=== PATIENT | female | born 1950 | race Caucasian/White ===

== ENCOUNTER → 2016-09-13 | Outpatient (CLI) | payer MEDICARE, OTHER ==
[~2016-09-13] MED LIST: ADVIL200 MG PO; AMBIEN 10MG10 MG PO; ASPIRIN E.C. 8181 MG PO; B-12 100 MCG PO; CAL-CITRATE PLU1 TAB PO; CALCIUM CITRATE1 TA1 PO; CARAFATE S1 GM/10 ML PO; CARDI-OMEGA1000 MG PO; FISH OIL1 IU PO; FLAX SEED OIL1000 MG PO; LEVOXYL0.075 MG PO; LEVOXYL0.112 MG PO; MULTI VITAMINS1 TAB PO; PROTONIX 40MG T40 MG PO; SENNA8.6 MG PO; ULTRAM 50MG TAB50 MG PO; VITAMIN C500 MG PO; VITAMIN E 400 U4001 PO; ZANTAC 150MG T150 MG PO; ZOCOR 20MG20 MG PO; ZOFRAN ODT4 MG PO; [UNRECOGNIZED DRUG - OTHER]
== END ==
LOC: COL.RAD 13:46
DX: R10.11 Right upper quadrant pain (principal)

== ENCOUNTER → 2016-09-16 | Outpatient (CLI) | payer MEDICARE, OTHER | LOC: COL.RAD 05:53 | DX: R10.11 Right upper quadrant pain (principal) | CPT/HCPCS: A9537; J2805 ==

== ENCOUNTER 2016-09-21 14:40 | Day surgery (SDC) | payer MEDICARE, OTHER ==
[~2016-09-21] VITALS: Ht 157.5 cm; Wt 71.3 kg
[~2016-09-21 14:40] MED LIST changes: -ADVIL200 MG PO; -AMBIEN 10MG10 MG PO; -B-12 100 MCG PO; -CALCIUM CITRATE1 TA1 PO; -CARAFATE S1 GM/10 ML PO; -CARDI-OMEGA1000 MG PO; -LEVOXYL0.075 MG PO; -PROTONIX 40MG T40 MG PO; -SENNA8.6 MG PO; -ULTRAM 50MG TAB50 MG PO; -ZANTAC 150MG T150 MG PO; -ZOFRAN ODT4 MG PO
[2016-09-21 15:33] VITALS: BP 178/83; PULSE 70; TEMP 98.9
[2016-09-21] MEDS ORDERED: LEVOXYL0.075 MG PO (15:37)
[2016-09-21] MEDS ORDERED: CARDI-OMEGA1000 MG PO (15:38)
[2016-09-21] MEDS ORDERED: AMBIEN 10MG10 MG PO (15:40)
[2016-09-21] MEDS ORDERED: ADVIL200 MG PO (15:40)
[2016-09-21] MEDS ORDERED: PROTONIX 40MG T40 MG PO (15:41)
[2016-09-21] MEDS ORDERED: B-12 100 MCG PO (15:42)
[2016-09-21] MEDS ORDERED: CALCIUM CITRATE1 TA1 PO (15:43)
[2016-09-21 16:45] VITALS: BP 140/63; PULSE 76; TEMP 98
[2016-09-21 17:00] VITALS: BP 145/76; PULSE 66
[2016-09-21 17:15] VITALS: BP 157/70; PULSE 63
== END 2016-09-21 17:43 | disposition home or self-care (01) ==
LOC: SDCO 14:40
DX: R19.7 Diarrhea, unspecified (principal); R10.9 Unspecified abdominal pain; K30 Functional dyspepsia; K21.9 Gastro-esophageal reflux disease without esophagitis; R07.9 Chest pain, unspecified; K90.0 Celiac disease
CPT/HCPCS: J2250; J2405; J3010; J7030

== ENCOUNTER → 2016-09-30 | Outpatient (CLI) | payer MEDICARE, OTHER ==
[~2016-09-30] MED LIST changes: +ADVIL200 MG PO; +AMBIEN 10MG10 MG PO; +B-12 100 MCG PO; +CALCIUM CITRATE1 TA1 PO; +CARAFATE S1 GM/10 ML PO; +CARDI-OMEGA1000 MG PO; +LEVOXYL0.075 MG PO; +PROTONIX 40MG T40 MG PO; +SENNA8.6 MG PO; +ULTRAM 50MG TAB50 MG PO; +ZANTAC 150MG T150 MG PO; +ZOFRAN ODT4 MG PO
== END ==
LOC: COL.RAD 08:16
DX: R07.9 Chest pain, unspecified (principal); R07.0 Pain in throat
CPT/HCPCS: Q9967

== ENCOUNTER → 2016-10-31 | Outpatient (CLI) | payer MEDICARE, OTHER | LOC: MC.RAD 10:52 | DX: Z12.31 Encounter for screening mammogram for malignant neoplasm of breast (principal) ==

== ENCOUNTER → 2016-11-07 | Outpatient (CLI) | payer MEDICARE, OTHER | LOC: COL.RAD 09:11 | DX: K44.9 Diaphragmatic hernia without obstruction or gangrene (principal); K21.9 Gastro-esophageal reflux disease without esophagitis ==

== ENCOUNTER → 2016-12-27 | Outpatient (CLI) | payer MEDICARE, OTHER | LOC: COL.RAD 07:54 | DX: R14.0 Abdominal distension (gaseous) (principal); R10.84 Generalized abdominal pain | CPT/HCPCS: A9541 ==

== ENCOUNTER → 2017-03-01 | Outpatient (CLI) | payer MEDICARE, OTHER | LOC: COL.RAD 07:43 | DX: I25.10 Atherosclerotic heart disease of native coronary artery without angina pectoris (principal) ==

== ENCOUNTER 2017-03-28 12:42 | Emergency (ER) | payer MEDICARE, OTHER ==
[~2017-03-28] VITALS: Ht 154.9 cm; Wt 66.8 kg
[~2017-03-28 12:42] MED LIST changes: -CARAFATE S1 GM/10 ML PO; -SENNA8.6 MG PO; -ULTRAM 50MG TAB50 MG PO; -ZANTAC 150MG T150 MG PO; -ZOFRAN ODT4 MG PO
[2017-03-28 12:45] VITALS: TEMP 97.3
[2017-03-28 13:34] LABS: BASO % 0.5 % (0.0-2.0); EOS # 0.1 (0.0-0.7); GRAN # 6.2 (1.4-6.5); GRAN % 79.1 % (42.2-75.2); HEMATOCRIT 33.2 % (37.0-47.0); HEMOGLOBIN 11.5 g/dl (12.5-16.0); LYMPH # 1.1 (1.2-3.4); LYMPH % 14.5 % (20.0-51.0); MEAN CELL VOLUME 90 fl (80.0-100.0); MEAN CORPUSCULAR HEMOGLOBIN 31 pg (27.0-31.0); MEAN CORPUSCULAR HGB CONC 35 g/dl (33.0-37.0); MEAN PLATELET VOLUME 8.6 fl (7.4-10.4); MONO # 0.4 (0.1-0.6); MONO % 4.6 % (1.7-9.3); PLATELET COUNT 571 K/mm3 (130-400); REDCELL DISTRIBUTION WIDTH-CV 13.3 % (11.5-14.5); WHITE BLOOD COUNT 7.9 K/mm3 (4.8-10.8)
[2017-03-28 14:22] LABS: ADJUSTED CALCIUM 9.5 mg/dL (8.4-10.2); ALBUMIN 4.2 gm/dL (3.5-5.0); BILIRUBIN,TOTAL 0.6 mg/dL (0.0-1.0); CALCIUM 9.7 mg/dL (8.4-10.2); CREATININE, serum 0.74 mg/dL (0.52-1.25); POTASSIUM 3.8 mmol/L (3.4-5.0); TOTAL PROTEIN 7.1 gm/dL (6.4-8.2)
[2017-03-28 14:41] LABS: TROPONIN-I 0.082 ng/mL (0.000-0.034)
[2017-03-28] MEDS ORDERED: ZANTAC 150MG T150 MG PO (15:10)
[2017-03-28] MEDS ORDERED: ULTRAM 50MG TAB50 MG PO (15:10)
[2017-03-28] MEDS ORDERED: SENNA8.6 MG PO (15:11)
[2017-03-28] MEDS ORDERED: CARAFATE S1 GM/10 ML PO (16:36)
[2017-03-28] MEDS ORDERED: ZOFRAN ODT4 MG PO (16:36)
[2017-03-28 17:05] VITALS: BP 139/72; PULSE 73
== END 2017-03-28 18:22 | disposition home or self-care (01) ==
LOC: COL.ER 12:42
PROVIDERS: Emergency Medicine
DX: K30 Functional dyspepsia (principal); R11.10 Vomiting, unspecified; R19.7 Diarrhea, unspecified; F11.23 Opioid dependence with withdrawal; Z79.82 Long term (current) use of aspirin; Z95.1 Presence of aortocoronary bypass graft
CPT/HCPCS: C9113; J2405

== ENCOUNTER → 2017-06-30 | Outpatient (RCR) | payer MEDICARE, OTHER ==
[~2017-06-30] MED LIST changes: +CARAFATE S1 GM/10 ML PO; +SENNA8.6 MG PO; +ULTRAM 50MG TAB50 MG PO; +ZANTAC 150MG T150 MG PO; +ZOFRAN ODT4 MG PO
== END ==
LOC: COL.CR
DX: Z48.812 Encounter for surgical aftercare following surgery on the circulatory system (principal); I25.110 Atherosclerotic heart disease of native coronary artery with unstable angina pectoris; I25.810 Atherosclerosis of coronary artery bypass graft(s) without angina pectoris

== ENCOUNTER 2018-01-01 11:00 | Outpatient (RCR) | payer MEDICARE, OTHER ==
[2018-01-12] MEDS ORDERED: LEVOXYL0.05 MG PO (09:34)
[2018-01-12] MEDS ORDERED: CRESTOR20 MG PO (09:35)
[2018-01-12] MEDS ORDERED: COZAAR100 MG PO (09:36)
[2018-01-12] MEDS ORDERED: NORVASC 10MG10 MG PO (09:37)
[2018-01-12] MEDS ORDERED: XANAX 0.5MG0.5 MG PO (09:38)
[2018-01-12] MEDS ORDERED: PROBIOTIC-MAJOR PO (09:39)
[2018-01-12] MEDS ORDERED: KRILL OIL 5001 EACH PO (09:39)
[2018-01-12] MEDS ORDERED: HEMP OIL PO (09:40)
[2018-01-12] MEDS ORDERED: CALCIUM 600MG+D1 TAB PO (09:41)
[2018-01-12] MEDS ORDERED: BIOTIN2500 MCG PO (09:42)
[2018-01-12] MEDS ORDERED: PERCOCET 325 MG1 TA2 PO (09:46)
[2018-02-20] MEDS ORDERED: CURCUMIN95% PO (08:40)
== END 2018-03-04 | disposition home or self-care (01) ==
LOC: WSPT
DX: M25.552 Pain in left hip (principal); M25.551 Pain in right hip; M79.605 Pain in left leg; M79.604 Pain in right leg
CPT/HCPCS: G8978-GP; G8979-GP

== ENCOUNTER → 2018-01-17 | Outpatient (CLI) | payer MEDICARE, OTHER ==
[~2018-01-17] VITALS: Ht 154.9 cm; Wt 66.4 kg
[~2018-01-17] MED LIST changes: +BIOTIN2500 MCG PO; +CALCIUM 600MG+D1 TAB PO; +COZAAR100 MG PO; +CRESTOR20 MG PO; +HEMP OIL PO; +KRILL OIL 5001 EACH PO; +LEVOXYL0.05 MG PO; +NORVASC 10MG10 MG PO; +PERCOCET 325 MG1 TA2 PO; +PROBIOTIC-MAJOR PO; +XANAX 0.5MG0.5 MG PO
[2018-01-17 13:17] VITALS: BP 122/72; PULSE 62
[2018-01-17 14:30] VITALS: BP 144/77; PULSE 64
== END ==
LOC: COL.RAD 12:42
DX: M48.061 Spinal stenosis, lumbar region without neurogenic claudication (principal); M51.27 Other intervertebral disc displacement, lumbosacral region
CPT/HCPCS: J3301

== ENCOUNTER → 2018-02-22 | Outpatient (CLI) | payer MEDICARE, OTHER ==
[~2018-02-22] VITALS: Ht 154.9 cm; Wt 66.6 kg
[~2018-02-22] MED LIST changes: +CURCUMIN95% PO
[2018-02-22 09:56] VITALS: BP 155/75; PULSE 58
[2018-02-22 10:55] VITALS: BP 153/73; PULSE 59
== END ==
LOC: COL.RAD 09:30
DX: M51.27 Other intervertebral disc displacement, lumbosacral region (principal)
CPT/HCPCS: J3301

== ENCOUNTER 2018-06-05 19:58 | Emergency (ER) | payer MEDICARE, OTHER ==
[~2018-06-05] VITALS: Ht 154.9 cm; Wt 65.0 kg
[2018-06-05 20:07] VITALS: BP 148/66; TEMP 97.6
[2018-06-05] MEDS ORDERED: SALAGEN 5MG TAB5 MG PO (20:56)
[2018-06-05] MEDS ORDERED: CELEXA 20MG20 MG/TAB PO (20:57)
[2018-06-05] MEDS ORDERED: CEPHALEXIN500 M1 PO (22:21)
[2018-06-05 22:37] VITALS: PULSE 86
== END 2018-06-05 22:37 | disposition home or self-care (01) ==
LOC: COL.ER 19:58
DX: S91.111A Laceration without foreign body of right great toe without damage to nail, initial encounter (principal); I10 Essential (primary) hypertension; Z23 Encounter for immunization; Z79.82 Long term (current) use of aspirin; W26.8XXA Contact with other sharp object(s), not elsewhere classified, initial encounter; Y92.009 Unspecified place in unspecified non-institutional (private) residence as the place of occurrence of the external cause

== ENCOUNTER → 2018-08-08 | Outpatient (CLI) | payer MEDICARE, OTHER ==
[~2018-08-08] VITALS: Ht 154.9 cm; Wt 67.8 kg
[~2018-08-08] MED LIST changes: +CELEXA 20MG20 MG/TAB PO; +CEPHALEXIN500 M1 PO; +NEURONTIN300 MG/CAP PO; +RESTASIS0.05% IO; +SALAGEN 5MG TAB5 MG PO; +SYNTHROID0.075 MG/T PO
[2018-08-08 09:32] VITALS: BP 143/71; PULSE 61
[2018-08-08 10:24] VITALS: BP 133/76; PULSE 59
== END ==
LOC: COL.RAD 09:16
DX: M51.16 Intervertebral disc disorders with radiculopathy, lumbar region (principal)
CPT/HCPCS: J3301

== ENCOUNTER → 2018-10-16 | Outpatient (CLI) | payer MEDICARE, OTHER | LOC: COL.RAD 14:23 | DX: M47.817 Spondylosis without myelopathy or radiculopathy, lumbosacral region (principal) | CPT/HCPCS: J3301 ==

== ENCOUNTER → 2019-01-16 | Outpatient (CLI) | payer MEDICARE, OTHER | LOC: COL.RAD 10:20 | DX: M46.86 Other specified inflammatory spondylopathies, lumbar region (principal); M54.16 Radiculopathy, lumbar region | CPT/HCPCS: J3301 ==

== ENCOUNTER → 2019-03-05 | Outpatient (CLI) | payer MEDICARE, OTHER | LOC: MHCPAIN 15:20 | DX: G89.29 Other chronic pain (principal); M47.817 Spondylosis without myelopathy or radiculopathy, lumbosacral region; M53.3 Sacrococcygeal disorders, not elsewhere classified | CPT/HCPCS: G0463 ==

== ENCOUNTER → 2019-03-14 | Outpatient (CLI) | payer MEDICARE, OTHER | LOC: MHCPAIN 10:51 | DX: M47.817 Spondylosis without myelopathy or radiculopathy, lumbosacral region (principal); M54.16 Radiculopathy, lumbar region ==

== ENCOUNTER → 2019-03-25 | Outpatient (CLI) | payer MEDICARE, OTHER | LOC: MHCPAIN 11:21 | DX: G89.29 Other chronic pain (principal); M47.817 Spondylosis without myelopathy or radiculopathy, lumbosacral region; M53.3 Sacrococcygeal disorders, not elsewhere classified | CPT/HCPCS: G0463 ==

== ENCOUNTER → 2019-04-04 | Outpatient (CLI) | payer MEDICARE, OTHER | LOC: MHCPAIN 12:26 | DX: M47.817 Spondylosis without myelopathy or radiculopathy, lumbosacral region (principal); M54.16 Radiculopathy, lumbar region | CPT/HCPCS: J1100; J2250; J3010 ==

== ENCOUNTER → 2019-04-18 | Outpatient (CLI) | payer MEDICARE, OTHER | LOC: MHCPAIN 12:13 | DX: M47.817 Spondylosis without myelopathy or radiculopathy, lumbosacral region (principal); M54.16 Radiculopathy, lumbar region | CPT/HCPCS: J1100; J2250; J3010 ==

== ENCOUNTER → 2019-05-01 | Outpatient (CLI) | payer MEDICARE, OTHER | LOC: MC.RAD 09:00 | DX: Z12.31 Encounter for screening mammogram for malignant neoplasm of breast (principal) ==